=== PATIENT | female | born 1965 | race Caucasian/White ===

== ENCOUNTER 2022-11-04 20:05 | Emergency (ER) | payer OTHER, SELFPAY ==
[2022-11-04 20:11] VITALS: BP 133/88; PULSE 72; RESP 14; TEMP 36.9; O2SAT 96
[2022-11-04 20:22] VITALS: PULSE 76; RESP 19; O2SAT 96
--- NOTE | 2022-11-04 20:23 | ED.GENADULT ---
HPI - General Adult General Chief complaint: Upper Respiratory Infection Stated complaint: +COVID on Wednesday-N/V, fever Time Seen by Provider: 11/04/22 20:09 History of Present Illness HPI narrative: 57-year-old female diagnosed with COVID on Wednesday presented to ED for evaluation of concern for dehydration with associated nausea. Patient states she has not been drinking much fluids did feel dizzy and lightheaded earlier. Patient reports she has not had any syncopal episodes. Patient denies any current chest pain or shortness of breath. This is the patient's third episode of COVID. Related Data Allergies Allergy/AdvReac Type Severity Reaction Status Date / Time No Known Allergies Allergy Verified 11/04/22 20:06 Review of Systems Review of Systems: All systems reviewed & are unremarkable except as noted in HPI and below PMFSH Past Medical History Medical History (Updated 11/04/22 @ 20:48 by Ziggy Gates MD) Breast cancer (~2014) Hypothyroidism Normal colonoscopy (~2016) Surgical History Surgical History (Updated 04/27/19 @ 10:53 by Margarette Simons PA-C) H/O mastectomy (~2014) Family History Family History (Updated 04/27/19 @ 10:54 by Margarette Simons PA-C) Father Depression Mother Cerebrovascular accident Sibling Depression Family history of thyroid disease Thyroid cancer Grandparent Diabetes mellitus Social History Social History Smoking status: Never smoker Smoking end date: 03/22/05 Alcohol intake: current Exam Narrative: APPEARANCE: Well appearing, no pain, no distress, well-nourished. HEAD: normocephalic, atraumatic. EYES: PERRLA/EOMI, conjunctivae clear. NOSE: Normal no drainage EARS:TMS clear with good light reflex. THROAT: Pharynx clear, no exudate. NECK: Supple. No adenopathy, no masses. RESPIRATORY: Airway patent, respirations nonlabored. Clear to auscultation bilaterally, no rales, rhonchi, wheezing. CARDIOVASCULAR: Regular rate and rhythm without murmurs rubs or gallops. ABDOMINAL: Soft, nontender, nondistended, normal bowel sounds MUSCULOSKELETAL: Moves all extremities. Strength/ROM intact, No edema, No calf tenderness. NEURO: Alert. Cranial nerves II through XII intact. Good gait. Good coordination SKIN: Warm, dry. Normal Color PSYCHIATRIC: Normal affect/mood. Course Course Emergency Course: 57-year-old female presented the ED for evaluation of nausea and dehydration after recent COVID diagnosis. Patient did feel improved with rehydration. At time of discharge patient was afebrile with no tachycardia and stable pulse ox on room air. Patient was provided Zofran for nausea control for home. All question concerns were addressed. Vital Signs Vital signs: Vital Signs Temperature 98.4 F 11/04/22 20:11 Pulse Rate 72 11/04/22 20:11 Respiratory Rate 14 11/04/22 20:11 Blood Pressure 133/88 11/04/22 20:11 Pulse Oximetry 96 11/04/22 20:11 Oxygen Delivery Room Air 11/04/22 20:11 Temperature 98.4 F 11/04/22 20:11 Pulse Rate 83 11/04/22 21:15 Respiratory Rate 18 11/04/22 21:15 Blood Pressure 131/71 11/04/22 21:15 Pulse Oximetry 100 11/04/22 21:15 Oxygen Delivery Room Air 11/04/22 20:15 Medical Decision Making Differential Diagnosis Differential Diagnosis: COVID, dehydration, nausea vomiting Vital Signs Vital Signs: Vital Signs Temperature 98.4 F 11/04/22 20:11 Pulse Rate 72 11/04/22 20:11 Respiratory Rate 14 11/04/22 20:11 Blood Pressure 133/88 11/04/22 20:11 Pulse Oximetry 96 11/04/22 20:11 Oxygen Delivery Room Air 11/04/22 20:11 Temperature 98.4 F 11/04/22 20:11 Pulse Rate 83 11/04/22 21:15 Respiratory Rate 18 11/04/22 21:15 Blood Pressure 131/71 11/04/22 21:15 Pulse Oximetry 100 11/04/22 21:15 Oxygen Delivery Room Air 11/04/22 20:15 Discharge Plan Discharge Clinical Impression: COVID, Nausea Patient Disposition: Home, Self-Care Co
[2022-11-04 20:30] VITALS: BP 122/71; PULSE 76; RESP 19; O2SAT 97
[2022-11-04 20:31] VITALS: PULSE 71; RESP 12; O2SAT 98
[2022-11-04] MEDS: SODIUM CHLORIDE 0.9% IV 1,000 ML 999 ML IV CONT (20:34)
[2022-11-04] MEDS: ONDANSETRON INJ 4 MG/2 ML VIAL IV PUSH (20:34)
[2022-11-04 21:02] VITALS: PULSE 81; RESP 17
[2022-11-04 21:15] VITALS: BP 131/71; PULSE 83; RESP 18; O2SAT 100
== END 2022-11-04 21:15 | disposition home or self-care (01) ==
PROVIDERS: Emergency Provider Emergency Medicine; PCP Family Medicine Sports Medicine
DX: U07.1 COVID-19 (principal); R11.0 Nausea; E03.9 Hypothyroidism, unspecified; Z90.10 Acquired absence of unspecified breast and nipple; Z85.3 Personal history of malignant neoplasm of breast; Z87.891 Personal history of nicotine dependence; Z86.16 Personal history of COVID-19
CPT/HCPCS: 96361; 96374; 99284; J2405; J7030